=== PATIENT | male | born 1980 | race Caucasian/White ===

== ENCOUNTER → 2021-04-13 09:21 | Outpatient (CLI) | payer BC, SELFPAY ==
[2021-04-13 10:21] LABS: ALB/GLOB Ratio 0.9 RATIO (0.9-2.4); AST(SGOT) 18 U/L (15-37); Alanine Aminotransfer ALT/SGPT 37 U/L (16-61); Albumin, Serum 3.6 g/dL (3.2-5.0); Alkaline Phosphatase 87 U/L (45-117); Anion Gap 3 (5-15); BUN 8 mg/dL (7-18); Calcium,Total 8.9 mg/dL (8.5-10.1); Chloride 106 mmol/L (98-107); Cholesterol 211 mg/dL (200); EST Glomerular Filtration Rate 114 mL/min (>60); Est Glom Filt Rate - Afr Amer 137 mL/min (>60); Globulin 3.9 g/dL (2.2-4.2); Glucose 84 mg/dL (74-106); High Density Lipoprotein 42 mg/dL; Potassium 3.8 mmol/L (3.5-5.1); Protein, Total 7.5 g/dL (6.4-8.2); Sodium Level 138 mmol/L (136-145); Triglycerides 137 mg/dL; Very Low Density Lipoprotein 27 mg/dL (5-40)
== END ==
PROVIDERS: PCP Family Medicine; Referring Provider Family Medicine; Visit Provider Family Medicine
DX: E66.9 Obesity, unspecified (principal)
CPT/HCPCS: 36415; 80053; 80061

== ENCOUNTER → 2021-06-15 09:34 | Outpatient (CLI) | payer BC, SELFPAY ==
[2021-06-15 12:18] LABS: Absolute Lymphocyte Count 2.21 X10^3/uL (0.83-4.51); Absolute Neutrophil Count 5.2 X10^3/uL (2.0-7.7); Basophil# 0.04 X10^3/uL; Basophil% 0.5 % (0-1); Eosinophil# 0.11 X10^3/uL; Eosinophils% 1.4 % (0-5); Hematocrit 46.9 % (40-54); Hemoglobin 15.3 g/dL (13.0-16.5); Lymphocyte # 2.21 X10^3/ul (0.83-4.51); Lymphocyte % 27.5 % (19-41); Mean Corp Hgb Conc 32.6 g/dL (32-36); Mean Corpuscular Hgb 29.7 pg (27.0-32.0); Mean Corpuscular Volume 90.9 fL (80-94); Mean Platelet Vol. 10.6 fl (6.2-12.0); Monocyte# 0.46 X10^3/uL; Monocyte% 5.7 % (0-10); NRBC Flagged by Analyzer 0 % (0-5); Neutrophil # 5.18 X10^3/uL (2.7-7.7); Neutrophil % 64.3 % (47-70); Platelet Count 344 K/mm3 (150-450); RBC Distribution Width CV 12.6 % (11.6-14.6); Red Blood Count 5.16 M/mm3 (4.6-6.2); White Blood Count 8.1 K/mm3 (4.4-11.0)
[2021-06-15 12:45] LABS: AST(SGOT) 21 U/L (15-37); Alanine Aminotransfer ALT/SGPT 44 U/L (16-61); Albumin, Serum 3.9 g/dL (3.2-5.0); Alkaline Phosphatase 86 U/L (45-117); Anion Gap 10 (5-15); BUN 15 mg/dL (7-18); BUN/Creat Ratio 16.1 RATIO (10-20); Bilirubin, Direct 0.11 mg/dL (0.00-0.30); Calcium,Total 9.5 mg/dL (8.5-10.1); Chloride 105 mmol/L (98-107); Cholesterol 219 mg/dL (200); Creatinine, Serum 0.93 mg/dL (0.70-1.30); EST Glomerular Filtration Rate 95 mL/min (>60); Est Glom Filt Rate - Afr Amer 115 mL/min (>60); Globulin 4.1 g/dL (2.2-4.2); Glucose 82 mg/dL (74-106); High Density Lipoprotein 48 mg/dL; Potassium 3.8 mmol/L (3.5-5.1); Sodium Level 141 mmol/L (136-145); Triglycerides 131 mg/dL; Very Low Density Lipoprotein 26 mg/dL (5-40)
[2021-06-15 13:13] LABS: Hepatitis B Surface Antibody Non-Reactive; Hepatitis B Surface Antigen Non-Reactive (Nonreactive); Hepatitis C Antibody Non-Reactive (Nonreactive)
[2021-06-20 19:07] LABS: QNTFERON TB Mitogen Value > 10.00 IU/mL (.); QNTFERON TB Nil Value 0 IU/mL (.); QNTFERON TB1+ Ag Value 0 IU/mL (.); QNTFERON TB2+ Ag Value 0 IU/mL (.)
[2021-06-20 19:56] LABS: Hepatitis B Core Ab Total Negative (Negative); QNTIFERON TB Positive Criteria Negative (Negative)
== END ==
PROVIDERS: PCP Family Medicine; Visit Provider Physician Assistant Medical
DX: E78.5 Hyperlipidemia, unspecified (principal); L40.0 Psoriasis vulgaris; Z79.899 Other long term (current) drug therapy
CPT/HCPCS: 36415; 80048; 80061; 80076; 85025; 86480; 86704; 86706; 86803; 87340

== ENCOUNTER → 2022-06-17 | Outpatient (CLI) | payer BC, SELFPAY ==
[2022-06-19 21:07] LABS: QNTFERON TB Mitogen Value > 10.00 IU/mL (.); QNTFERON TB Nil Value 0.02 IU/mL (.); QNTFERON TB1+ Ag Value 0.02 IU/mL (.); QNTFERON TB2+ Ag Value 0.01 IU/mL (.)
[2022-06-20 15:29] LABS: Hepatitis B Core Ab Total Negative (Negative); QNTIFERON TB Positive Criteria Negative (Negative)
== END | disposition home or self-care (01) ==
LOC: MFPLAB 14:32
PROVIDERS: PCP Family Medicine; Visit Provider Physician Assistant Medical
DX: L40.0 Psoriasis vulgaris (principal); Z79.899 Other long term (current) drug therapy
CPT/HCPCS: 36415; 86480; 86704

== ENCOUNTER → 2022-09-27 | Outpatient (CLI) | payer BC, SELFPAY ==
[2022-09-27 18:14] LABS: Absolute Lymphocyte Count 2.77 X10^3/uL (0.83-4.51); Absolute Neutrophil Count 4.6 X10^3/uL (2.0-7.7); Basophil# 0.05 X10^3/uL; Basophil% 0.6 % (0-1); Eosinophil# 0.15 X10^3/uL; Eosinophils% 1.8 % (0-5); Hematocrit 43.1 % (40-54); Hemoglobin 14.2 g/dL (13.0-16.5); Lymphocyte # 2.77 X10^3/ul (0.83-4.51); Lymphocyte % 33.6 % (19-41); Mean Corp Hgb Conc 32.9 g/dL (32-36); Mean Corpuscular Hgb 30.7 pg (27.0-32.0); Mean Corpuscular Volume 93.1 fL (80-94); Mean Platelet Vol. 10.9 fl (6.2-12.0); Monocyte# 0.59 X10^3/uL; Monocyte% 7.2 % (0-10); NRBC Flagged by Analyzer 0 % (0-5); Neutrophil # 4.64 X10^3/uL (2.7-7.7); Neutrophil % 56.3 % (47-70); Platelet Count 287 K/mm3 (150-450); RBC Distribution Width CV 12.6 % (11.6-14.6); RBC Distribution Width SD 42.7 fl (35.1-43.9); Red Blood Count 4.63 M/mm3 (4.6-6.2); White Blood Count 8.2 K/mm3 (4.4-11.0)
[2022-09-27 18:43] LABS: ALB/GLOB Ratio 1.4 RATIO (0.9-2.4); AST(SGOT) 66 U/L (15-37); Alanine Aminotransfer ALT/SGPT 46 U/L (16-61); Albumin, Serum 4.2 g/dL (3.2-5.0); Alkaline Phosphatase 61 U/L (45-117); Anion Gap 9 (5-15); BUN 13 mg/dL (7-18); BUN/Creat Ratio 17.4 RATIO (10-20); Calcium,Total 9.5 mg/dL (8.5-10.1); Chloride 105 mmol/L (98-107); Cholesterol 197 mg/dL (200); Creatinine, Serum 0.75 mg/dL (0.70-1.30); EST Glomerular Filtration Rate 123 mL/min (>60); Est Glom Filt Rate - Afr Amer 148 mL/min (>60); Globulin 3.1 g/dL (2.2-4.2); Glucose 86 mg/dL (74-106); High Density Lipoprotein 55 mg/dL; Protein, Total 7.3 g/dL (6.4-8.2); Sodium Level 141 mmol/L (136-145); Thyroid Stim Hormone (TSH) 1.68 uIU/mL (0.358-3.74); Triglycerides 134 mg/dL; Very Low Density Lipoprotein 27 mg/dL (5-40)
[2022-09-27 18:50] LABS: Microalbumin,Random Urine 17.6 mg/L (NO RANGE EST.)
[2022-09-27 18:55] LABS: Hemoglobin A1c 5.2 % (3.8-5.6)
== END | disposition home or self-care (01) ==
LOC: MFPLAB 16:17
PROVIDERS: PCP Family Medicine; Visit Provider Family Medicine
DX: I10 Essential (primary) hypertension (principal)
CPT/HCPCS: 36415; 80053; 80061; 82043; 83036; 84443; 85025

== ENCOUNTER → 2023-04-13 | Outpatient (CLI) | payer BC, SELFPAY ==
--- NOTE | 2023-04-13 07:41 | MRI_ITS ---
INDICATION: cluster migraines L side only approx 1 yr EXAMINATION: MRI - MR Brain WO/W Contrast TECHNIQUE: MRI examination of brain obtained with standard protocol including multiplanar multiecho imaging. Pre and Postcontrast imaging obtained. IV Contrast Dosage and Agent: 20 mL Clariscan COMPARISON: : No relevant prior comparison study available FINDINGS: HEMISPHERES, CEREBELLUM AND BRAINSTEM: 1. The cerebral parenchyma, ventricular system, subarachnoid spaces have normal configuration and density. There is a normal gyral pattern. There is normal blair/white differentiation. No midline shift.. 2. The hemispheric white matter has normal appearance. 3. No intraparenchymal mass, hemorrhage, or acute territorial infarct. 4. The cerebellum, brainstem, basilar and suprasellar cisterns have normal appearance. No Chiari malformation. PITUITARY: There is a large homogeneously enhancing solid mass within the sella without sellar expansion, currently estimated at 2.0 x 1.6 cm in axial dimension, and 1.9 cm in superior to inferior dimension. There is suprasellar extension with contact with the optic nerves and optic chiasm with only minimal displacement.. No bony destruction. No evidence elida extension into the cavernous sinuses. Findings consistent with a pituitary macroadenoma. CSF SPACES: Appropriate for age. No hydrocephalus. Basal cisterns are patent. VESSELS: 1. There are normal flow voids noted in the great vessels at the skull base ORBITS AND PARANASAL SINUSES: 1. Both globes, extraocular muscles, optic nerves and retrobulbar fat appear unremarkable. 2. Paranasal sinuses are clear. BONY ELEMENTS: Bony elements of the cranial vault, facial skeleton and skull base have normal appearance. SCALP AND SOFT TISSUES: Normal appearance of the soft tissues of the scalp and the visualized face OTHER: None MRI/Brain W/WO Contrast IMPRESSION: 1. Prominent sellar mass with homogeneous enhancement and suprasellar extension with contact with the optic nerves and optic chiasm consistent with a pituitary macroadenoma estimated at 2.0 x 1.6 x 1.9 cm in size. No evidence of bony erosion, no evidence of extension into the cavernous sinus. 2. No evidence of intraparenchymal mass, hemorrhage, or acute territorial infarct. 3. No radiographically significant sinus disease. Electronically Signed: Kip Mendez MD at 23:42 EDT ,
[2023-04-16 12:55] LABS: CREATININE FINGERSTICK < 0.90 mg/dL (0.70-1.30); EGFR FINGERSTICK > 60 mL/min (>60)
== END | disposition home or self-care (01) ==
PROVIDERS: PCP Family Medicine
DX: G44.099 Other trigeminal autonomic cephalgias (TAC), not intractable (principal)
CPT/HCPCS: 70553; A9575

== ENCOUNTER → 2023-09-08 | Outpatient (CLI) | payer BC, SELFPAY ==
--- OUTSIDE RECORDS SUMMARY | 2023-09-08 16:25 | XMS RPT_ITS | CCD ---
Author Name Unknown Address [address] [place] [address] Organization [facility] Care Team Providers Care City Collector Name Role Phone Unavailable Primary Care Provider UnavailKETAN Harrison Attending Unavailable KETAN BEATTY Attending Unavailable KETAN BEATTY Attending Unavailable KETAN BEATTY Attending Unavailable TONEY CANCINO Referring Unavailable Medications Current Medications Medication Drug Class(es) Dates Sig (Normalized) Sig (Original) indomethacin 25 mg oral capsule (3 sources) Nonsteroidal Anti-inflammatory Drug Start: 02-08-2023 End: 03-10-2023 take 1 capsule by mouth three times daily at mealtime indomethacin (INDOCIN) 25 mg capsule Indications: Intractable chronic cluster headache Take 1 capsule by mouth three times daily with meals. 90 capsule 0 02/08/2023 03/10/2023 Active Completed/Discontinued Medications Medication Drug Class(es) Dates Sig (Normalized) Sig (Original) amitriptyline hydrochloride 10 mg oral tablet (9 sources) Tricyclic Antidepressant Start: 10-11-2022 amitriptyline (ELAVIL) 10 mg tablet 1.5 ml fremanezumab-vfrm 150 mg/ml auto-injector (2 sources) Start: 11-29-2022 End: 02-27-2023 inject 1.5 mL by subcutaneous injection every month fremanezumab-vfrm (AJOVY AUTOINJECTOR) 225 mg/1.5 mL auto-injector Inject 1.5 mL subcutaneously once every month. Do not shake. 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), not intractable] Onset: 01-03-2023 Episodic Results Test Name Value Interpretation Reference Range Facil ity Vital Signs Date Time Vital Sign Value Performing Clinician Isaiasi roniy 03-28-2023 10:03-0400 Body height 182.9 cm Ketan Beatty MD Work Phone: [facility] 03-28-2023 10:03-0400 Body weight 103.42 kg Ketan Beatty MD Work Phone: [facility] 03-28-2023 10:03-0400 Diastolic blood pressure 90 mm[Hg] Ketan Beatty MD Work Phone: [facility] 03-28-2023 10:03-0400 Heart rate 82 /min Ketan Beatty MD Work Phone: [facility] 03-28-2023 10:03-0400 Systolic blood pressure 141 mm[Hg] Ketan Beatty MD Work Phone: [facility] 02-14-2023 08:15-0400 Body height 182.9 cm Ketan Beatty MD Work Phone: [facility] 02-14-2023 08:15-0400 Body weight 103.42 kg Ketan Beatty MD Work Phone: [facility] 02-14-2023 08:15-0400 Diastolic blood pressure 86 mm[Hg] Ketan Beatty MD Work Phone: [facility] 02-14-2023 08:15-0400 Heart rate 75 /min Ketan Beatty MD Work Phone: [facility] 02-14-2023 08:15-0400 Systolic blood pressure 126 mm[Hg] Ketan Beatty MD Work Phone: [facility] 01-03-2023 08:22-0400 Body height 182.9 cm Ketan Beatty MD Work Phone: [facility] 01-03-2023 08:22-0400 Body weight 103.42 kg Ketan Beatty MD Work Phone: [facility] 01-03-2023 08:22-0400 Diastolic blood pressure 86 mm[Hg] Ketan Beatty MD Work Phone: [facility] 01-03-2023 08:22-0400 Heart rate 75 /min Ketan Beatty MD Work Phone: [facility] 01-03-2023 08:22-0400 Systolic blood pressure 128 mm[Hg] Ketan Beatty MD Work Phone: [facility] 11-03-2022 10:54-0500 Body height 182.9 cm Ketan Beatty MD Work Phone: [facility] 11-03-2022 10:54-0500 Body weight 102.06 kg Ketan Beatty MD Work Phone: [facility] 11-03-2022 10:54-0500 Diastolic blood pressure 87 mm[Hg] Ketan Beatty MD Work Phone: [facility] 11-03-2022 10:54-0500 Heart rate 90 /min Ketan Beatty MD Work Phone: [facility] 11-03-2022 10:54-0500 Systolic blood pressure 138 mm[Hg] Ketan Beatty MD Work Phone: [facility] Encounters Encounter Date Encounter Type Care Provider Facility Start: 03-29-2023 Telephone encounter Ketan bolton MD Work Phone: [facility] Neurology Plan of Treatment Date Care Activity Detail Author Start: 04-29-2023 Influenza vaccination [facility] Start: 08-29-2022 DEPRESSION ASSESSMENT DEPRESSION ASSESSMENT [facility] Start: 04-29-2022 Influenza vaccination INFLUENZA (#1) [facility] Start: 2016 LIPID SCREEN LIPID SCREEN [facility] Start: 2000 Urine microalbumin profile DTAP,TDAP,TD (1 - Tdap) [facility] Start: 1999 HEPATITIS C SCREENING HEPATITIS C SCREENING [facility] Start: 1999 HIV SCREENING HIV SCREENING [facility] Start: 03-01-1982 COVID-19 VACCINE (#1) COVID-19 VACCINE (#1) [facility] Start: 1981 HEPATITIS B (1 of 3 - 3-dose series) HEPATITIS B (1 of 3 - 3-dose series) [facility] End: 04-26-2024 Mri brain brain stem w/o w/contrast material MRI BRAIN WO/W IVCON Radiology Routine Trigeminal autonomic cephalgias 1 Occurrences starting 03/29/2023 until 04/26/2024 [facility] Work Phone: Payers Date Payer Category Payer Unknown [id number] 2020 Unknown [id number] Social History Date Type Detail Facility Start: 11-03-2022 Tobacco smoking stat [facility] Never smoked tobacco [facility] Start: 11-03-2022 Tobacco use and exposure Smoke less tobacco non-user [facility] Start: 11-03-2022 End: 03-28-2023 Alcohol intake Current drinker of alcohol (finding) [facility] Start: 11-03-2022 Alcohol Comment socially [facility] Start: 1981 Sex Assigned At Not on file [facility] Start: 01-03-2023 End: 02-14-2023 History of Social function [facility] Start: 01-03-2023 End: 02-14-2023 Tobacco use panel [facility] National Score (1-10 0), lower number is lower risk 47 [facility] Clinical Notes 11-03-2022 to 03-29-2023 Telephone Encounter - Luca Reyna - 03/29/2023 12:33 PM EDTTelephone Encounter - Swati Levin MA - 03/29/2023 8:31 AM EDTPatient Ketan Colorado MD - 03/28/2023 10:00 AM EDT Note Date & Type Note Facility 03-29-2023 Miscellaneous Notes Per Miss Iverson at [facility], NO auth required; Case # [id number] Luca Reyna Can you see if MRI BRAIN WO/W IVCON needs auth at [facility]? Address is [address] [address]. CPT: 67854 documented in this encounter [facility] 03-28-2023 Note HNO ID: [id number] Author: Ketan Beatty MD Service: ? Author Type: Physician Type: Progress Notes Filed: 03/29/2023 7:57 AM Note Text: Referring Provider: No ref. provider found Date: March 28, 2023 Chief Complaint: Headaches HISTORY OF PRESENT ILLNESS: Danish Farley is a 42 year old male who presents for Headaches. 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 He states that he has been staying busy with 14 new puppies. Patient denies smoking and only drinks socially. Patient completed prednisone taper 60 mg, taken daily for 10 days followed by 10 mg every 4 days with no medication side effects. He states that while on them they worked great but as soon as he got off of them the headaches returned. After completion of the steroids he will on average wake up 4 out of 7 nights with extreme headache. His pain is in the left gnosticism area and he can get rid of the intense pain within half an hour if he takes an over the counter medication. Patient denies the pain radiating from the left side of his head. He will have one to two intense headaches on a given day. He recently had a headache that two Maxalt did not even provide relief from. He states that he has some headache daily. There is some redness and tearing in the left eye. I, Lulu Engle MA , transcribing for Ketan Beatty MD. ALLERGIES No Known Allergies PAST MEDICAL HISTORY: PAST MEDICAL HISTORY Diagnosis Date Cholecystitis 07/28/2010 Cholelithiasis 07/28/2010 Hypertension PAST SURGICAL HISTORY Procedure Laterality Date LAPS SURG CHOLECYSTECTOMY W/CHOLANGIOGRAPHY 07/28/2010 FAMILY HISTORY Problem Relation Age of Onset Skin Cancer Mother other (hypercholesteroiema) Mother Depression Mother Obesity Mother Irritable Bowel Syndrome Mother Ischemic Heart Disease Father Diabetes Father Obesity Father Heart disease Father Cancer Father Stroke Father Obesity Brother Hypertension Brother Diabetes Brother Heart disease Maternal Grandfather Diabetes Paternal Grandmother Heart disease Paternal Grandfather Heart disease Maternal Uncle Diabetes Maternal Uncle Obesity Maternal Uncle SOCIAL HISTORY: Tobacco Use: Never Alcohol Use: Yes (socially) Drug Use: Not Currently Employer And Job Title: No employer specified ([employer]) Years Of Education Completed: Not specified Marital Status: Single MEDICATIONS: Current Outpatient Medications Medication Sig rizatriptan (MAXALT) 10 mg tablet Take 1 tablet by mouth as needed (at onset of headache. May repeat after 2 hours.). Do not exceed 30 mg per day. Directions for use are to take one at onset of migraine, and if not resolved, may take another in two hours. Do not exceed more than two in 24 hours, four in a week or nine in a month. TREMFYA 100 mg/mL lisinopril (ZESTRIL, PRINIVIL) 20 mg tablet Take 20 mg by mouth once daily. amitriptyline (ELAVIL) 10 mg tablet (Patient not taking: Reported on 01/03/2023) predniSONE (DELTASONE) 20 mg tablet TAKE 2 TABLETS BY MOUTH ONCE DAILY FOR 3 DAYS, THEN 1 TAB FOR 3 DAYS, THEN 1/2 (ONE-HALF) TAB FOR 3 DAYS (Patient not taking: Reported on 03/28/2023) No current facility-administered medications for this visit. I have personally reviewed the patients past medical history including social, family, surgical, diagnostics, and medications./AB REVIEW OF SYSTEMS: A full 10-system Review of Systems was completed and all was negative except for what is reflected in the History of Present Illness. Review of Systems Constitutional: Negative for chills, fever and unexpected weight change. HENT: Negative for congestion, facial swelling, trouble swallowing and voice change. Eyes: Negative for visual disturbance. Respiratory: Negative for shortness of breath. Cardiovascular: Negative for chest pain. Gastrointestinal: Negative for diarrhea, nausea and vomiting. Musculoskeletal: Negative for gait problem and myalgias. Allergic/Immunologic: Negative. Negative for immunocompromised state. Neurological: Positive for headaches. Negative for dizziness, syncope and light-headedness. Psychiatric/Behavioral: Negative. Negative for hallucinations and self-injury. Vitals: BP 141/90 Pulse 82 Ht 182.9 cm (6') Wt 103.4 kg (228 lb) BMI 30.92 kg/m? PHYSICAL EXAM:: The physical exam findings are as follows: General General Appearance - Well groomed. Orientation: Oriented to time, Oriented to place, and Oriented to person. Higher Cortical Function: Awake and alert. Language functions are intact. Patient names well and repeats well. Spontaneous speech as well as comprehension is normal. Fund of knowledge is intact for the patients' level of education. Attention span and concentration are normal and as expected for patients' age. Neurologic CRANIAL NER (more content not included)... 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 1.) Patient will start on Topamax 50 mg, 1 tablet twice daily. Side effects can include a change in taste especially noticed in soda pop and numbness in your finger. 2.) Discussed the terminal superintendent side effects of prednisone with patient and advised that he can not continue for an extended time. 3.) We will order an MRI brain w/w out contrast to be done at [facility]. 4.) Follow up after testing. documented in this encounter [facility] 03-28-2023 History of Presen t illness Narrative Referring Provider: No ref. provider found Date: March 28, 2023 Chief Complaint: Headaches HISTORY OF PRESENT ILLNESS: Danish Farley is a 42 year old male who presents for Headaches. 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 He states that he has been staying busy with 14 new puppies. Patient denies smoking and only drinks socially. Patient completed prednisone taper 60 mg, taken daily for 10 days followed by 10 mg every 4 days with no medication side effects. He states that while on them they worked great but as soon as he got off of them the headaches returned. After completion of the steroids he will on average wake up 4 out of 7 nights with extreme headache. His pain is in the left gnosticism area and he can get rid of the intense pain within half an hour if he takes an over the counter medication. Patient denies the pain radiating from the left side of his head. He will have one to two intense headaches on a given day. He recently had a headache that two Maxalt did not even provide relief from. He states that he has some headache daily. There is some redness and tearing in the left eye. I, Lulu Engle MA , transcribing for Ketan Beatty MD. ALLERGIES No Known Allergies PAST MEDICAL HISTORY: PAST MEDICAL HISTORY Diagnosis Date Cholecystitis 07/28/2010 Cholelithiasis 07/28/2010 Hypertension PAST SURGICAL HISTORY Procedure Laterality Date LAPS SURG CHOLECYSTECTOMY W/CHOLANGIOGRAPHY 07/28/2010 FAMILY HISTORY Problem Relation Age of Onset Skin Cancer Mother other (hypercholesteroiema) Mother Depression Mother Obesity Mother Irritable Bowel Syndrome Mother Ischemic Heart Disease Father Diabetes Father Obesity Father Heart disease Father Cancer Father Stroke Father Obesity Brother Hypertension Brother Diabetes Brother Heart disease Maternal Grandfather Diabetes Paternal Grandmother Heart disease Paternal Grandfather Heart disease Maternal Uncle Diabetes Maternal Uncle Obesity Maternal Uncle SOCIAL HISTORY: Tobacco Use: Never Alcohol Use: Yes (socially) Drug Use: Not Currently Employer And Job Title: No employer specified ([employer]) Years Of Education Completed: Not specified Marital Status: Single MEDICATIONS: Current Outpatient Medications Medication Sig rizatriptan (MAXALT) 10 mg tablet Take 1 tablet by mouth as needed (at onset of headache. May repeat after 2 hours.). Do not exceed 30 mg per day. Directions for use are to take one at onset of migraine, and if not resolved, may take another in two hours. Do not exceed more than two in 24 hours, four in a week or nine in a month. TREMFYA 100 mg/mL lisinopril (ZESTRIL, PRINIVIL) 20 mg tablet Take 20 mg by mouth once daily. amitriptyline (ELAVIL) 10 mg tablet (Patient not taking: Reported on 01/03/2023) predniSONE (DELTASONE) 20 mg tablet TAKE 2 TABLETS BY MOUTH ONCE DAILY FOR 3 DAYS, THEN 1 TAB FOR 3 DAYS, THEN 1/2 (ONE-HALF) TAB FOR 3 DAYS (Patient not taking: Reported on 03/28/2023) No current facility-administered medications for this visit. I have personally reviewed the patients past medical history including social, family, surgical, diagnostics, and medications./AB REVIEW OF SYSTEMS: A full 10-system Review of Systems was completed and all was negative except for what is reflected in the History of Present Illness. Review of Systems Constitutional: Negative for chills, fever and unexpected weight change. HENT: Negative for congestion, facial swelling, trouble swallowing and voice change. Eyes: Negative for visual disturbance. Respiratory: Negative for shortness of breath. Cardiovascular: Negative for chest pain. Gastrointestinal: Negative for diarrhea, nausea and vomiting. Musculoskeletal: Negative for gait problem and myalgias. Allergic/Immunologic: Negative. Negative for immunocompromised state. Neurological: Positive for headaches. Negative for dizziness, syncope and light-headedness. Psychiatric/Behavioral: Negative. Negative for hallucinations and self-injury. Vitals: BP 141/90 Pulse 82 Ht 182.9 cm (6') Wt 103.4 kg (228 lb) BMI 30.92 kg/m PHYSICAL EXAM:: The physical exam findings are as follows: General General Appearance - Well groomed. Orientation: Oriented to time, Oriented to place, and Oriented to person. Higher Cortical Function: Awake and alert. Language functions are intact. Patient names well and repeats well. Spontaneous speech as well as comprehension is normal. Fund of knowledge is intact for the patients' level of education. Attention span and concentration are normal and as expected for patients' age. Neurologic CRANIAL NERVES: ll - Makes and sustains eye contact. Visual rapp are full to confrontation testing. lll, lV, Vl - Pupils are 2 -3 mm in size and reactive. External ocular movements are full, and there is no nystagmus. V - Facial sensation to light touch and pin prick, normal. Vll - No facial asymmetry. Vlll - Normal hearing. lX - Palatal movements, normal. Xl - Good and equal shoulder shrugs. Xll - Tongue protrusion, midline. Motor Exam Bulk/Size: Normal Strength Exam: Upper Extremity Right Left Deltoid 5 5 Biceps 5 5 Triceps 5 5 Wrist Extensor 5 5 Wrist Flexor 5 5 APB 5 5 FDI 5 5 Lower Extremity Right Left Flexor hip joint 5 5 Extensor hip joint 5 5 Extensor knee joint 5 5 Flexor knee joint 5 5 Dorsi flexor ankle joint 5 5 Plantar flexor ankle joint 5 5 Tone: Normal Abnormal movements: None Sensory: Right Left Light Touch Not checked Not checked Pin Prick Not checked Not checked Vibration Not checked Not checked Temperature Not checked Not checked Distal/Proximal exam: Normal Sensory level: None Reflex Right Left Biceps 2+ 2+ Triceps 2+ 2+ Wrist 2+ 2+ Knee 2+ 2+ Ankle 2+ 2+ Plantar Not checked Not checked Cerebellar Exam: Normal Gait and Stance: Not checked Tandem walk: Not checked Romberg's: Not checked The following documents and testing were reviewed and discussed with the patient. 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 1.) Patient will start on Topamax 50 mg, 1 tablet twice daily. Side effects can include a change in taste especially noticed in soda pop and numbness in your finger. 2.) Discussed the assisted side effects of prednisone with patient and advised that he can not continue for an extended time. 3.) We will order an MRI brain w/w out contrast to be done at [facility]. 4.) Follow up after testing. The old record was reviewed and new history from past medical record was obtained and recorded. I have discussed the recommended treatment, alternative treatments and other treatment options in detail. I have discussed the risks, benefits and side effects of the recommended treatment in detail as well. I have attempted to answer all their questions to their satisfaction, and understanding of the explanation has been voiced. With approval we will pursue the recommended treatment. I, Ketan Beatty, have reviewed and agree with the information in the medical record transcribed by Lulu Engle MA . Ketan Beatty MD documented in this encounter [facility] 03-16-2023 Miscellaneous Notes Patient left message stating that he completed the Prednisone and his headaches are coming back. He is wondering if is appointment needs moved up or if there is another medication that he should try? Patient states he also needs a refill on his Maxalt. documented in this encounter [facility] 02-14-2023 Note HNO ID: [id number] Author: Ketan Beatty MD Service: ? Author Type: Physician Type: Progress Notes Filed: 02/14/2023 1:50 PM Note Text: Referring Provider: No ref. provider found Date: February 14, 2023 Chief Complaint: Headaches HISTORY OF PRESENT ILLNESS: Danish Farley is a 42 year old male who follows for Headaches. 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 He states that he has been staying busy with 14 new puppies. Patient denies smoking and only drinks socially. Patient is taking Indomethacin 25 mg, 3 tablets daily with no medication side effects; however he states that he is still having headaches. He states every morning he will have a headache at his left gnosticism, behind his eye and back into his head. He is able to get relief from aspirin within a hour but he does randomly get them back at some point during the day. Patient states that on 02/12/2023 he woke up with a severe headache with his eye watering. He did take Maxalt on this day to try to get relief but states that he had it until about noon. I, Lulu Engle MA, transcribing for Ketan Beatty MD. ALLERGIES No Known Allergies PAST MEDICAL HISTORY: PAST MEDICAL HISTORY Diagnosis Date Cholecystitis 07/28/2010 Cholelithiasis 07/28/2010 Hypertension PAST SURGICAL HISTORY Procedure Laterality Date LAPS SURG CHOLECYSTECTOMY W/CHOLANGIOGRAPHY 07/28/2010 FAMILY HISTORY Problem Relation Age of Onset Skin Cancer Mother other (hypercholesteroiema) Mother Depression Mother Obesity Mother Irritable Bowel Syndrome Mother Ischemic Heart Disease Father Diabetes Father Obesity Father Heart disease Father Cancer Father Stroke Father Obesity Brother Hypertension Brother Diabetes Brother Heart disease Maternal Grandfather Diabetes Paternal Grandmother Heart disease Paternal Grandfather Heart disease Maternal Uncle Diabetes Maternal Uncle Obesity Maternal Uncle SOCIAL HISTORY: Tobacco Use: Never Alcohol Use: Yes (socially) Drug Use: Not Currently Employer And Job Title: No employer specified ([employer]) Years Of Education Completed: Not specified Marital Status: Single MEDICATIONS: Current Outpatient Medications Medication Sig indomethacin (INDOCIN) 25 mg capsule Take 1 capsule by mouth three times daily with meals. rizatriptan (MAXALT) 10 mg tablet Take 1 tablet by mouth as needed (at onset of headache. May repeat after 2 hours.). Do not exceed 30 mg per day. Directions for use are to take one at onset of migraine, and if not resolved, may take another in two hours. Do not exceed more than two in 24 hours, four in a week or nine in a month. amitriptyline (ELAVIL) 10 mg tablet (Patient not taking: Reported on 01/03/2023) TREMFYA 100 mg/mL lisinopril (ZESTRIL, PRINIVIL) 20 mg tablet Take 20 mg by mouth once daily. (Patient not taking: Reported on 01/03/2023) predniSONE (DELTASONE) 20 mg tablet TAKE 2 TABLETS BY MOUTH ONCE DAILY FOR 3 DAYS, THEN 1 TAB FOR 3 DAYS, THEN 1/2 (ONE-HALF) TAB FOR 3 DAYS No current facility-administered medications for this visit. I have personally reviewed the patients past medical history including social, family, surgical, diagnostics, and medications./AB Review of Systems Neurological: Positive for headaches. Vitals: BP 126/86 Pulse 75 Ht 182.9 cm (6') Wt 103.4 kg (228 lb) BMI 30.92 kg/m? PHYSICAL EXAM:: The physical exam findings are as follows: General General Appearance - Well groomed Orientation: Oriented to time, oriented to place, and oriented to person. Higher Cortical Function: Awake and alert. Language functions are intact. Patient names well and repeats well, spontaneous speech as well as comprehension is normal and fund of knowledge is intact for the patient level of education. Attention span and concentration are normal and as expected for patient's age. Neurologic CRANIAL NERVES: ll - Makes and sustains eye contact. Visual rapp are full to confrontation testing. lll, lV, Vl - Pupils are 2 -3 mm in size and reactive. External ocular movements are full and there is no nystagmus. V - Facial sensation to light touch and pin prick, normal. Vll - No facial asymmetry Vlll - Normal hearing. lX - Palatal movements, normal. Xl - Good and equal shoulder shrugs. Xll - Tongue protrusion, midline. Motor Exam Bulk/Size: Normal Strength Exam: Upper Extremity Right Left Deltoid 5 5 Biceps 5 5 Triceps 5 5 Wrist Extensor 5 5 Wrist Flexor 5 5 APB 5 5 FDI 5 5 Lower Extremity Right Left Flexor hip joint 5 5 Extensor hip joint 5 5 Extensor knee joint 5 5 Flexor knee joint 5 5 Dorsi flexor ankle joint 5 5 Plantar flexor ankle joint 5 5 Tone: Normal Abnormal movements: None Sensory: Right Left Light Touch Normal Normal Pin Prick Not checke (more content not included)... 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 1.) Patient will start on Prednisone 60 mg, take daily for 10 days. After 10 days you will taper down by 10 mg every 4 days. 2.) No further testing is indicated at this time. 3.) Follow up in 6 weeks. documented in this encounter [facility] 02-14-2023 History of Presen t illness Narrative Referring Provider: No ref. provider found Date: February 14, 2023 Chief Complaint: Headaches HISTORY OF PRESENT ILLNESS: Danish Farley is a 42 year old male who follows for Headaches. 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 He states that he has been staying busy with 14 new puppies. Patient denies smoking and only drinks socially. Patient is taking Indomethacin 25 mg, 3 tablets daily with no medication side effects; however he states that he is still having headaches. He states every morning he will have a headache at his left gnosticism, behind his eye and back into his head. He is able to get relief from aspirin within a hour but he does randomly get them back at some point during the day. Patient states that on 02/12/2023 he woke up with a severe headache with his eye watering. He did take Maxalt on this day to try to get relief but states that he had it until about noon. I, Lulu Engle MA, transcribing for Ketan Beatty MD. ALLERGIES No Known Allergies PAST MEDICAL HISTORY: PAST MEDICAL HISTORY Diagnosis Date Cholecystitis 07/28/2010 Cholelithiasis 07/28/2010 Hypertension PAST SURGICAL HISTORY Procedure Laterality Date LAPS SURG CHOLECYSTECTOMY W/CHOLANGIOGRAPHY 07/28/2010 FAMILY HISTORY Problem Relation Age of Onset Skin Cancer Mother other (hypercholesteroiema) Mother Depression Mother Obesity Mother Irritable Bowel Syndrome Mother Ischemic Heart Disease Father Diabetes Father Obesity Father Heart disease Father Cancer Father Stroke Father Obesity Brother Hypertension Brother Diabetes Brother Heart disease Maternal Grandfather Diabetes Paternal Grandmother Heart disease Paternal Grandfather Heart disease Maternal Uncle Diabetes Maternal Uncle Obesity Maternal Uncle SOCIAL HISTORY: Tobacco Use: Never Alcohol Use: Yes (socially) Drug Use: Not Currently Employer And Job Title: No employer specified ([employer]) Years Of Education Completed: Not specified Marital Status: Single MEDICATIONS: Current Outpatient Medications Medication Sig indomethacin (INDOCIN) 25 mg capsule Take 1 capsule by mouth three times daily with meals. rizatriptan (MAXALT) 10 mg tablet Take 1 tablet by mouth as needed (at onset of headache. May repeat after 2 hours.). Do not exceed 30 mg per day. Directions for use are to take one at onset of migraine, and if not resolved, may take another in two hours. Do not exceed more than two in 24 hours, four in a week or nine in a month. amitriptyline (ELAVIL) 10 mg tablet (Patient not taking: Reported on 01/03/2023) TREMFYA 100 mg/mL lisinopril (ZESTRIL, PRINIVIL) 20 mg tablet Take 20 mg by mouth once daily. (Patient not taking: Reported on 01/03/2023) predniSONE (DELTASONE) 20 mg tablet TAKE 2 TABLETS BY MOUTH ONCE DAILY FOR 3 DAYS, THEN 1 TAB FOR 3 DAYS, THEN 1/2 (ONE-HALF) TAB FOR 3 DAYS No current facility-administered medications for this visit. I have personally reviewed the patients past medical history including social, family, surgical, diagnostics, and medications./AB Review of Systems Neurological: Positive for headaches. Vitals: BP 126/86 Pulse 75 Ht 182.9 cm (6') Wt 103.4 kg (228 lb) BMI 30.92 kg/m PHYSICAL EXAM:: The physical exam findings are as follows: General General Appearance - Well groomed Orientation: Oriented to time, oriented to place, and oriented to person. Higher Cortical Function: Awake and alert. Language functions are intact. Patient names well and repeats well, spontaneous speech as well as comprehension is normal and fund of knowledge is intact for the patient level of education. Attention span and concentration are normal and as expected for patient's age. Neurologic CRANIAL NERVES: ll - Makes and sustains eye contact. Visual rapp are full to confrontation testing. lll, lV, Vl - Pupils are 2 -3 mm in size and reactive. External ocular movements are full and there is no nystagmus. V - Facial sensation to light touch and pin prick, normal. Vll - No facial asymmetry Vlll - Normal hearing. lX - Palatal movements, normal. Xl - Good and equal shoulder shrugs. Xll - Tongue protrusion, midline. Motor Exam Bulk/Size: Normal Strength Exam: Upper Extremity Right Left Deltoid 5 5 Biceps 5 5 Triceps 5 5 Wrist Extensor 5 5 Wrist Flexor 5 5 APB 5 5 FDI 5 5 Lower Extremity Right Left Flexor hip joint 5 5 Extensor hip joint 5 5 Extensor knee joint 5 5 Flexor knee joint 5 5 Dorsi flexor ankle joint 5 5 Plantar flexor ankle joint 5 5 Tone: Normal Abnormal movements: None Sensory: Right Left Light Touch Normal Normal Pin Prick Not checked Not checked Vibration Not checked Not checked Temperature Not checked Not checked Distal/Proximal exam normal Sensory level: None Reflex Right Left Biceps 1+ 1+ Triceps 1+ 1+ Wrist 1+ 1+ Knee 1+ 1+ Ankle 1+ 1+ Plantar Not checked Not checked Cerebellar Exam: Normal Gait and Stance: Not checked Tandem walk: Not checked Romberg's: Not checked ASSESSMENT/PLAN: 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 1.) Patient will discontinue Indomethacin and start on Prednisone 60 mg, take daily for 10 days. After 10 days you will taper down by 10 mg every 4 days. 2.) No further testing is indicated at this time. 3.) Follow up in 6 weeks. The old record was reviewed and new history from past medial history was obtained and recorded. I have discussed the recommended treatment, alternative treatments and other treatment options in detail. I have discussed the risks, benefits and side effect of the recommended treatment in detail as well. I have attempted to answer all their questions to their satisfaction and understanding of the explanation has been voiced. With approval we will pursue the recommended treatment. I, Ketan Beatty, have reviewed and agree with the information in the medical record transcribed by Lulu Engle MA. Ketan Beatty MD documented in this encounter [facility] 01-03-2023 Miscellaneous Notes Notified patient that we changed his dosage to 25 mg up to three times daily for 10 days. Lulu Engle MA documented in this encounter [facility] documented as of this encounter (statuses as of 02/14/2023) [facility]05-08-2023 History of Past illness Narrative* Problem Noted Date Diagnosed Date Resolved Date Short lasting unilateral veronica ralgiform headache with conjunctival injection and tearing 01/03/2023 02/14/2023 documented as of this encounter (statuses as of 03/16/2023) [facility]05-08-2023 NoteHNO ID: [id number] Author: Ketan Beatty MD Service: ? Author Type: Physician Type: Progress Notes Filed: 01/03/2023 2:59 PM Note Text: Referring Provider: No ref. provider found Date: January 03, 2023 Chief Complaint: Headaches HISTORY OF PRESENT ILLNESS: Danish Farley is a 42 year old male who follows for Headaches. 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 Patient denies smoking and only drinks socially. Patient started on Ajovy injection and just took his second injection on 12/31/2022 with no medication side effects; however, he states that to this point he has not seen results he had hoped for. He feels that it may have reduced the severity of the pain but definitely has not eliminated them. He states that his headaches started in July 2022 and he had the last one on Monday, January 02, 2023. They have increased to the point he will have some extent of a headache every day. The pain is behind his left ear and goes up into his gnosticism. It can be a constant pain or at other times he will get sharp jolts of paint that can happen up to 100 times a day. He is extremely light sensitive and since his last office visit he has noticed that he gets a runny nose and watering of his eyes when he has a severe headache. He is taking Maxalt as needed and does benefit from use. I, Lulu Engle MA , transcribing for Ketan Beatty MD. ALLERGIES No Known Allergies PAST MEDICAL HISTORY: PAST MEDICAL HISTORY Diagnosis Date Cholecystitis 07/28/2010 Cholelithiasis 07/28/2010 Hypertension PAST SURGICAL HISTORY Procedure Laterality Date LAPS SURG CHOLECYSTECTOMY W/CHOLANGIOGRAPHY 07/28/2010 FAMILY HISTORY Problem Relation Age of Onset Skin Cancer Mother other (hypercholesteroiema) Mother Depression Mother Obesity Mother Irritable Bowel Syndrome Mother Ischemic Heart Disease Father Diabetes Father Obesity Father Heart disease Father Cancer Father Stroke Father Obesity Brother Hypertension Brother Diabetes Brother Heart disease Maternal Grandfather Diabetes Paternal Grandmother Heart disease Paternal Grandfather Heart disease Maternal Uncle Diabetes Maternal Uncle Obesity Maternal Uncle SOCIAL HISTORY: Tobacco Use: Never Alcohol Use: Yes (socially) Drug Use: Not Currently Employer And Job Title: No employer specified ([employer]) Years Of Education Completed: Not specified Marital Status: Single MEDICATIONS: Current Outpatient Medications Medication Sig rizatriptan (MAXALT) 10 mg tablet Take 1 tablet by mouth as needed (at onset of headache. May repeat after 2 hours.). Do not exceed 30 mg per day. Directions for use are to take one at onset of migraine, and if not resolved, may take another in two hours. Do not exceed more than two in 24 hours, four in a week or nine in a month. TREMFYA 100 mg/mL amitriptyline (ELAVIL) 10 mg tablet (Patient not taking: Reported on 01/03/2023) lisinopril (ZESTRIL, PRINIVIL) 20 mg tablet Take 20 mg by mouth once daily. (Patient not taking: Reported on 01/03/2023) predniSONE (DELTASONE) 20 mg tablet TAKE 2 TABLETS BY MOUTH ONCE DAILY FOR 3 DAYS, THEN 1 TAB FOR 3 DAYS, THEN 1/2 (ONE-HALF) TAB FOR 3 DAYS No current facility-administered medications for this visit. I have personally reviewed the patients past medical history including social, family, surgical, diagnostics, and medications./AB Review of Systems Constitutional: Negative for chills, fever and unexpected weight change. HENT: Negative for congestion, facial swelling, trouble swallowing and voice change. Eyes: Negative for visual disturbance. Respiratory: Negative for shortness of breath. Cardiovascular: Negative for chest pain. Gastrointestinal: Negative for diarrhea, nausea and vomiting. Musculoskeletal: Negative for gait problem and myalgias. Allergic/Immunologic: Negative. Negative for immunocompromised state. Neurological: Positive for headaches. Negative for dizziness, syncope and light-headedness. Psychiatric/Behavioral: Negative. Negative for hallucinations and self-injury. Vitals: BP 128/86 Pulse 75 Ht 182.9 cm (6') Wt 103.4 kg (228 lb) BMI 30.92 kg/m? PHYSICAL EXAM:: The physical exam findings are as follows: General General Appearance - Well groomed Orientation: Oriented to time, oriented to place, and oriented to person. Higher Cortical Function: Awake and alert. Language functions are intact. Patient names well and repeats well, spontaneous speech as well as comprehension is normal and fund of knowledge is intact for the patient level of education. Attention span and concentration are normal and as expected for patient's age. Neurologic CRANIAL NERVES: ll - Makes and sustains eye contact. Visual rapp are full to confrontation testing. lll, lV, Vl - Pupils are 2 (more content not included)...[facility]05-08-2023 Instructions* Patient Instructions* Lulu Engle MA - 01/03/2023 8:47 AM EDT ASSESSMENT/PLAN: Intractable chronic cluster headache - ICD9: 339.02, ICD10: G44.021 Patient has tried and failed on Verapamil, Prednisone, Amitriptyline and Ajovy. 1.) Patient will start on Indomethacin 25 mg 1 tablet daily for 3 days then 2 tablets daily for three days then 3 tablets daily. You will take this for 10 days total to see if you react to this medication and if you do you will then continue on the minimum dosage. 2.) Make sure to take this with food as it is known to cause stomach troubles. Please discontinue and call the office if you have any trouble taking it. 3.) Follow up in 4 weeks [facility] History of Present illness Narrative* Ketan Beatty MD - 01/03/2023 8:30 AM EDT Referring Provider: No ref. provider found Date: January 03, 2023 Chief Complaint: Headaches HISTORY OF PRESENT ILLNESS: Danish Farley is a 42 year old male who follows for Headaches. 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 Patient denies smoking and only drinks socially. Patient started on Ajovy injection and just took his second injection on 12/31/2022 with no medication side effects; however, he states that to this point he has not seen results he had hoped for. He feels that it may have reduced the severity of the pain but definitely has not eliminated them. He states that his headaches started in July 2022 and he had the last one on Monday, January 02, 2023. They have increased to the point he will have some extent of a headache every day. The pain is behind his left ear and goes up into his gnosticism. It can be a constant pain or at other times he will get sharp jolts of paint that can happen up to 100 times a day. He is extremely light sensitive and since his last office visit he has noticed that he gets a runny nose and watering of his eyes when he has asevere headache. He is taking Maxalt as needed and does benefit from use. I, Lulu Engle MA , transcribing for Ketan Beatty MD. ALLERGIES No Known Allergies PAST MEDICAL HISTORY: PAST MEDICAL HISTORY Diagnosis Date Cholecystitis 07/28/2010 Cholelithiasis 07/28/2010 Hypertension PAST SURGICAL HISTORY Procedure Laterality Date LAPS SURG CHOLECYSTECTOMY W/CHOLANGIOGRAPHY 07/28/2010 FAMILY HISTORY Problem Relation Age of Onset Skin Cancer Mother other (hypercholesteroiema) Mother Depression Mother Obesity Mother Irritable Bowel Syndrome Mother Ischemic Heart Disease Father Diabetes Father Obesity Father Heart disease Father Cancer Father Stroke Father Obesity Brother Hypertension Brother Diabetes Brother Heart disease Maternal Grandfather Diabetes Paternal Grandmother Heart disease Paternal Grandfather Heart disease Maternal Uncle Diabetes Maternal Uncle Obesity Maternal Uncle SOCIAL HISTORY: Tobacco Use: Never Alcohol Use: Yes (socially) Drug Use: Not Currently Employer And Job Title: No employer specified ([employer]) Years Of Education Completed: Not specified Marital Status: Single MEDICATIONS: Current Outpatient Medications Medication Sig rizatriptan (MAXALT) 10 mg tablet Take 1 tablet by mouth as needed (at onset of headache. May repeat after 2 hours.). Do not exceed 30 mg per day. Directions for use are to take one at onset of migraine, and if not resolved, may take another in two hours. Do not exceed more than two in 24 hours, four in a week or nine in a month. TREMFYA 100 mg/mL amitriptyline (ELAVIL) 10 mg tablet (Patient not taking: Reported on 01/03/2023) lisinopril (ZESTRIL, PRINIVIL) 20 mg tablet Take 20 mg by mouth once daily. (Patient not taking: Reported on 01/03/2023) predniSONE (DELTASONE) 20 mg tablet TAKE 2 TABLETS BY MOUTH ONCE DAILY FOR 3 DAYS, THEN 1 TAB FOR 3DAYS, THEN 1/2 (ONE-HALF) TAB FOR 3 DAYS No current facility-administered medications for this visit. I have personally reviewed the patients past medical history including social, family, surgical, diagnostics, and medications./AB Review of Systems Constitutional: Negative for chills, fever and unexpected weight change. HENT: Negative for congestion, facial swelling, trouble swallowing and voice change. Eyes: Negative for visual disturbance. Respiratory: Negative for shortness of breath. Cardiovascular: Negative for chest pain. Gastrointestinal: Negative for diarrhea, nausea and vomiting. Musculoskeletal: Negative for gait problem and myalgias. Allergic/Immunologic: Negative. Negative for immunocompromised state. Neurological: Positive for headaches. Negative for dizziness, syncope and light-headedness. Psychiatric/Behavioral: Negative. Negative for hallucinations and self-injury. Vitals: BP 128/86 Pulse 75 Ht 182.9 cm (6') Wt 103.4 kg (228 lb) BMI 30.92 kg/m PHYSICAL EXAM:: The physical exam findings are as follows: General General Appearance - Well groomed Orientation: Oriented to time, oriented to place, and oriented to person. Higher Cortical Function: Awake and alert. Language functions are intact. Patient names well and repeats well, spontaneous speech as well as comprehension is normal and fund of knowledge is intact for the patient level of education. Attention span and concentration are normal and as expected for patient's age. Neurologic CRANIAL NERVES: ll - Makes and sustains eye contact. Visual rapp are full to confrontation testing. lll, lV, Vl - Pupils are 2 -3 mm in size and reactive. External ocular movements are full and thereis no nystagmus. V - Facial sensation to light touch and pin prick, normal. Vll - No facial asymmetry Vlll - Normal hearing. lX - Palatal movements, normal. Xl - Good and equal shoulder shrugs. Xll - Tongue protrusion, midline. Motor Exam Bulk/Size: Normal Strength Exam: Upper Extremity Right Left Deltoid 5 5 Biceps 5 5 Triceps 5 5 Wrist Extensor 5 5 Wrist Flexor 5 5 APB 5 5 FDI 5 5 Lower Extremity Right Left Flexor hip joint 5 5 Extensor hip joint 5 5 Extensor knee joint 5 5 Flexor knee joint 5 5 Dorsi flexor ankle joint 5 5 Plantar flexor ankle joint 5 5 Tone: Normal Abnormal movements: None Sensory: Right Left Light Touch Normal Normal Pin Prick Not checked Not checked Vibration Not checked Not checked Temperature Not checked Not checked Distal/Proximal exam normal Sensory level: None Reflex Right Left Biceps 2+ 2+ Triceps 2+ 2+ Wrist 2+ 2+ Knee 2+ 2+ Ankle 2+ 2+ Plantar Not checked Not checked Cerebellar Exam: Normal Gait and Stance: Not checked Tandem walk: Not checked Romberg's: Not checked ASSESSMENT/PLAN: Intractable chronic cluster headache - ICD9: 339.02, ICD10: G44.021 Patient has tried and failed on Verapamil, Prednisone, Amitriptyline and Ajovy. 1.) Patient will start on Indomethacin 25 mg 1 tablet daily for 3 days then 2 tablets daily for three days then 3 tablets daily. You will take this for 10 days total to see if you react to this medication and if you do you will then continue on the minimum dosage. 2.) Make sure to take this with food as it is known to cause stomach troubles. Please discontinue and call the office if you have any trouble taking it. 3.) Follow up in 4 weeks The old record was reviewed and new history from past medical history was obtained and recorded. I have discussed the recommended treatment, alternative treatments and other treatment options in detail. I have discussed the risks, benefits and side effect of the recommended treatment in detail as well. I have attempted to answer all their questions to their satisfaction and understanding of the explanation has been voiced. With approval we will pursue the recommended treatment. I, Ketan Beatty, have reviewed and agree with the information in the medical record transcribed by, Lulu Engle MA. Ketan Beatty MD [facility] Miscellaneous Notes* Telephone Encounter - Lulu Engle MA - 12/01/2022 9:00 AM EDT Patient notified that it has been approved. Lulu Engle MA * Telephone Encounter - Luca Reyna - 12/01/2022 7:36 AM EDT Approved; Auth # [id number] 11/01/2022-12/01/2023 Luca Reyna * Telephone Encounter - Aniyah Ortega - 11/29/2022 3:44 PM EDT Pt is notified * Telephone Encounter - Lulu Engle MA - 11/29/2022 1:44 PM EDT The patient's insurance requires prior auth for the Ajovy injections. Can we please get this started as the order is being processed. Lulu Mckeon [facility] Miscellaneous Notes* Telephone Encounter - Lulu Engle MA - 11/23/2022 9:31 AM EDT Patient called in to let us know that he has been trying the plan of care we gave him but that he is not getting any relief with this and wanted to know if there is something else we can try. Lulu Engle MA [facility] NoteHNO ID: [id number] Author: Ketan Beatty MD Service: ? Author Type: Physician Type: Progress Notes Filed: 11/04/2022 9:10 AM Note Text: Referring Provider: Toney Cancino, Date: November 03, 2022 Chief Complaint: Headaches HISTORY OF PRESENT ILLNESS: Danish Farley is a 42 year old male who presents for Headaches. 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 Patient denies smoking and only drinks socially. Patient states that about three to four months ago he started to get headaches that caused his left eye to water and him to become sensitive to light. He didn't think much of it at first but then they began to occur daily. He started on Lisinopril in an effort to help reduce his blood pressure in hopes that it would help the headaches also. He states that the headaches will start with a pressure sensation in his head behind his left eye about half way around his head. He denies redness in his eye or his nose becoming runny when his eye vazquez. If he takes an over the counter medication in time he can get relief fairly quick. Patient believes that moving around is better than sitting or laying down for him during a headache. He states that he feels like the headaches are constant. Patient had recently moved so he did try a new pillow and not wearing his contacts for a week with no benefits. Patient states that his brother also has headaches similar to his are. He did recently start on a regiment of Prednisone and benefited from use. I, Lulu Engle MA, transcribing for Ketan Beatty MD. ALLERGIES No Known Allergies PAST MEDICAL HISTORY: PAST MEDICAL HISTORY Diagnosis Date Cholecystitis 07/28/2010 Cholelithiasis 07/28/2010 Hypertension PAST SURGICAL HISTORY Procedure Laterality Date LAPS SURG CHOLECYSTECTOMY W/CHOLANGIOGRAPHY 07/28/2010 FAMILY HISTORY Problem Relation Age of Onset Skin Cancer Mother other (hypercholesteroiema) Mother Depression Mother Obesity Mother Irritable Bowel Syndrome Mother Ischemic Heart Disease Father Diabetes Father Obesity Father Heart disease Father Cancer Father Stroke Father Obesity Brother Hypertension Brother Diabetes Brother Heart disease Maternal Grandfather Diabetes Paternal Grandmother Heart disease Paternal Grandfather Heart disease Maternal Uncle Diabetes Maternal Uncle Obesity Maternal Uncle SOCIAL HISTORY: Tobacco Use: Not on file Alcohol Use: Yes (socially) Drug Use: Not on file Employer And Job Title: No employer specified ([employer]) Years Of Education Completed: Not specified Marital Status: Single MEDICATIONS: Current Outpatient Medications Medication Sig amitriptyline (ELAVIL) 10 mg tablet TREMFYA 100 mg/mL lisinopril (ZESTRIL, PRINIVIL) 20 mg tablet Take 20 mg by mouth once daily. predniSONE (DELTASONE) 20 mg tablet TAKE 2 TABLETS BY MOUTH ONCE DAILY FOR 3 DAYS, THEN 1 TAB FOR 3 DAYS, THEN 1/2 (ONE-HALF) TAB FOR 3 DAYS No current facility-administered medications for this visit. I have personally reviewed the patients past medical history including social, family, surgical, diagnostics, and medications./AB Review of Systems Constitutional: Negative for chills, fever and unexpected weight change. HENT: Negative for congestion, facial swelling, trouble swallowing and voice change. Eyes: Negative for visual disturbance. Respiratory: Negative for shortness of breath. Cardiovascular: Negative for chest pain. Gastrointestinal: Negative for diarrhea, nausea and vomiting. Musculoskeletal: Negative for gait problem and myalgias. Allergic/Immunologic: Negative. Negative for immunocompromised state. Neurological: Positive for headaches. Negative for dizziness, syncope and light-headedness. Psychiatric/Behavioral: Negative. Negative for hallucinations and self-injury. Vitals: BP 138/87 Pulse 90 Ht 182.9 cm (6') Wt 102.1 kg (225 lb) BMI 30.52 kg/m? PHYSICAL EXAM:: The physical exam findings are as follows: General General Appearance - Well groomed Orientation: Oriented to time, oriented to place, and oriented to person. Higher Cortical Function: Awake and alert. Language functions are intact. Patient names well and repeats well, spontaneous speech as well as comprehension is normal and fund of knowledge is intact for the patient level of education. Attention span and concentration are normal and as expected for patient's age. Neurologic CRANIAL NERVES: ll - Makes and sustains eye contact. Visual rapp are full to confrontation testing. lll, lV, Vl - Pupils are 2 -3 mm in size and reactive. External ocular movements are full and there is no nystagmus. V - Facial sensation to light touch and pin prick, normal. Vll - No facial asymmetry Vlll - Normal hearing. lX - Palatal movements, normal. Xl (more content not included)...[facility]03-08-2023 Instructions* Patient Instructions* Lulu Engle MA - 11/03/2022 11:16 AM EST ASSESSMENT/PLAN: Intractable chronic cluster headache - ICD9: 339.02, ICD10: G44.021 Patient has tried and failed on Amitriptyline with no benefit but Prednisone has provided some relief from his headaches. 1.) Patient will start on Verapamil 240 mg once daily. 2.) Patient will start on Maxalt for breakthrough headaches. To be taken as directed below. Directions for use are to take one at onset of migraine, and if not resolved, may take another in two hours. Do not exceed more than two in 24 hours, four in a week or nine in a month. 3.) Patient will also have home oxygen for use as needed for headaches at 10 liters per minute for 10 minute during headache attacks 4.) Follow up [facility] 2 [facility] History of Present illness Narrative* Ketan Beatty MD - 11/03/2022 11:00 AM EST Referring Provider: Toney Cancino, Date: November 03, 2022 Chief Complaint: Headaches HISTORY OF PRESENT ILLNESS: Danish Farley is a 42 year old male who presents for Headaches. 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 Patient denies smoking and only drinks socially. Patient states that about three to four months ago he started to get headaches that caused his lefteye to water and him to become sensitive to light. He didn't think much of it at first but then they began to occur daily. He started on Lisinopril in an effort to help reduce his blood pressure in hopes that it would help the headaches also. He states that the headaches will start with a pressure sensation in his head behind his left eye about half way around his head. He denies redness in his eye or his nose becoming runny when his eye vazquez. If he takes an over the counter medication in time he can get relief fairly quick. Patient believes that moving around is better than sitting or laying down for him during a headache. He states that he feels like the headaches are constant. Patient had recently moved so he did try a new pillow and not wearing his contacts for a week with no benefits. Patient states that his brother also has headaches similar to his are. He did recently start on a regiment of Prednisone and benefited from use. I, Lulu Engle MA, transcribing for Ketan Beatty MD. ALLERGIES No Known Allergies PAST MEDICAL HISTORY: PAST MEDICAL HISTORY Diagnosis Date Cholecystitis 07/28/2010 Cholelithiasis 07/28/2010 Hypertension PAST SURGICAL HISTORY Procedure Laterality Date LAPS SURG CHOLECYSTECTOMY W/CHOLANGIOGRAPHY 07/28/2010 FAMILY HISTORY Problem Relation Age of Onset Skin Cancer Mother other (hypercholesteroiema) Mother Depression Mother Obesity Mother Irritable Bowel Syndrome Mother Ischemic Heart Disease Father Diabetes Father Obesity Father Heart disease Father Cancer Father Stroke Father Obesity Brother Hypertension Brother Diabetes Brother Heart disease Maternal Grandfather Diabetes Paternal Grandmother Heart disease Paternal Grandfather Heart disease Maternal Uncle Diabetes Maternal Uncle Obesity Maternal Uncle SOCIAL HISTORY: Tobacco Use: Not on file Alcohol Use: Yes (socially) Drug Use: Not on file Employer And Job Title: No employer specified ([employer]) Years Of Education Completed: Not specified Marital Status: Single MEDICATIONS: Current Outpatient Medications Medication Sig amitriptyline (ELAVIL) 10 mg tablet TREMFYA 100 mg/mL lisinopril (ZESTRIL, PRINIVIL) 20 mg tablet Take 20 mg by mouth once daily. predniSONE (DELTASONE) 20 mg tablet TAKE 2 TABLETS BY MOUTH ONCE DAILY FOR 3 DAYS, THEN 1 TAB FOR 3DAYS, THEN 1/2 (ONE-HALF) TAB FOR 3 DAYS No current facility-administered medications for this visit. I have personally reviewed the patients past medical history including social, family, surgical, diagnostics, and medications./AB Review of Systems Constitutional: Negative for chills, fever and unexpected weight change. HENT: Negative for congestion, facial swelling, trouble swallowing and voice change. Eyes: Negative for visual disturbance. Respiratory: Negative for shortness of breath. Cardiovascular: Negative for chest pain. Gastrointestinal: Negative for diarrhea, nausea and vomiting. Musculoskeletal: Negative for gait problem and myalgias. Allergic/Immunologic: Negative. Negative for immunocompromised state. Neurological: Positive for headaches. Negative for dizziness, syncope and light-headedness. Psychiatric/Behavioral: Negative. Negative for hallucinations and self-injury. Vitals: BP 138/87 Pulse 90 Ht 182.9 cm (6') Wt 102.1 kg (225 lb) BMI 30.52 kg/m PHYSICAL EXAM:: The physical exam findings are as follows: General General Appearance - Well groomed Orientation: Oriented to time, oriented to place, and oriented to person. Higher Cortical Function: Awake and alert. Language functions are intact. Patient names well and repeats well, spontaneous speech as well as comprehension is normal and fund of knowledge is intact for the patient level of education. Attention span and concentration are normal and as expected for patient's age. Neurologic CRANIAL NERVES: ll - Makes and sustains eye contact. Visual rapp are full to confrontation testing. lll, lV, Vl - Pupils are 2 -3 mm in size and reactive. External ocular movements are full and thereis no nystagmus. V - Facial sensation to light touch and pin prick, normal. Vll - No facial asymmetry Vlll - Normal hearing. lX - Palatal movements, normal. Xl - Good and equal shoulder shrugs. Xll - Tongue protrusion, midline. Motor Exam Bulk/Size: Normal Strength Exam: Upper Extremity Right Left Deltoid 5 5 Biceps 5 5 Triceps 5 5 Wrist Extensor 5 5 Wrist Flexor 5 5 APB 5 5 FDI 5 5 Lower Extremity Right Left Flexor hip joint 5 5 Extensor hip joint 5 5 Extensor knee joint 5 5 Flexor knee joint 5 5 Dorsi flexor ankle joint 5 5 Plantar flexor ankle joint 5 5 Tone: Normal Abnormal movements: None Sensory: Right Left Light Touch Not checked Not checked Pin Prick Not checked Not checked Vibration Not checked Not checked Temperature Not checked Not checked Distal/Proximal exam normal Sensory level: None Reflex Right Left Biceps 2+ 2+ Triceps 2+ 2+ Wrist 2+ 2+ Knee 2+ 2+ Ankle 2+ 2+ Plantar Not checked Not checked Cerebellar Exam: Normal Gait and Stance: Not checked Tandem walk: Not checked Romberg's: Not checked ASSESSMENT/PLAN: Intractable chronic cluster headache - ICD9: 339.02, ICD10: G44.021 Patient has tried and failed on Amitriptyline with no benefit but Prednisone has provided some relief from his headaches. 1.) Patient will start on Verapamil 240 mg once daily. 2.) Patient will start on Maxalt for breakthrough headaches. To be taken as directed below. Directions for use are to take one at onset of migraine, and if not resolved, may take another in two hours. Do not exceed more than two in 24 hours, four in a week or nine in a month. 3.) Patient will also have home oxygen for use as needed for headaches at 10 liters per minute for 10 minute during headache attacks 4.) Follow up in 2 months I have discussed the recommended treatment, alternative treatments and other treatment options in detail. I have discussed the risks, benefits and side effect of the recommended treatment in detail as well. I have attempted to answer all their questions to their satisfaction and understanding of the explanation has been voiced. With approval we will pursue the recommended treatment. I, Ketan Beatty, have reviewed and agree with the information in the medical record transcribed by Lulu Engle MA. 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 [facility] Diagnosis 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 [facility] Reason for Referral Specialty Diagnoses / Procedures Referred By Everton bolton Referred To Contact Ketan Beatty MD [address] [place] [id number] Referral ID Status Reason Start Date Expiration Date Visits Re quested Visits Authorized [id number] Closed 1 1 Specialty Diagnoses / Procedures Referred By Everton bolton Referred To Contact [facility] Diagnoses Trigeminal autonomic cephalgias Procedures MRI BRAIN WO/W IVCON MRI BRAIN BRAIN STEM W/O W/CONTRAST MATERIAL Ketan Beatty MD [address] [place] [address] Mr Imaging Referral ID Status Reason Start Date Expiration Date Visits Requested Visits Authorized [id number] Pending Review Auto-Generat ed Referral 03/29/2023 04/26/2024 1 1 Summary Purpose Family History No Family History Records Found Advance Directives No Advanced Directives Records Found Additional Source Comments Source Comments (unrecognize d section and content) In the event this informatio n is protected by the Federal Confidentiality of Alcohol and Drug Abuse Patient Records regulations: The Federal rules restrict any use of the information to criminally investigate or prosecute any alcohol or drug abuse patient.[facility] the event this information is protected by the Federal Confidentiality of Alcohol and Drug Abuse Patient Records regulations: The Federal rules restrict any use of the information to criminally investigate or prosecute any alcohol or drug abuse patient.[facility] the event this information is protected by the Federal Confidentiality of Alcohol and Drug Abuse Patient Records regulations: The Federal rules restrict any use of the information to criminally investigate or prosecute any alcohol or drug abuse patient.[facility] the event this information is protected by the Federal Confidentiality of Alcohol and Drug Abuse Patient Records regulations: The Federal rules restrict any use of the information to criminally investigate or prosecute any alcohol or drug abuse patient.[facility] the event this information is protected by the Federal Confidentiality of Alcohol and Drug Abuse Patient Records regulations: The Federal rules restrict any use of the information to criminally investigate or prosecute any alcohol or drug abuse patient.[facility] the event this information is protected by the Federal Confidentiality of Alcohol and Drug Abuse Patient Records regulations: The Federal rules restrict any use of the information to criminally investigate or prosecute any alcohol or drug abuse patient.[facility] the event this information is protected by the Federal Confidentiality of Alcohol and Drug Abuse Patient Records regulations: The Federal rules restrict any use of the information to criminally investigate or prosecute any alcohol or drug abuse patient.[facility] the event this information is protected by the Federal Confidentiality of Alcohol and Drug Abuse Patient Records regulations: The Federal rules restrict any use of the information to criminally investigate or prosecute any alcohol or drug abuse patient.[facility] the event this information is protected by the Federal Confidentiality of Alcohol and Drug Abuse Patient Records regulations: The Federal rules restrict any use of the information to criminally investigate or prosecute any alcohol or drug abuse patient.[facility] Reason for Visit (unrecogniz ed section and content) Reason Comments Medication Problem Reason Comments Ajovy prior auth Reason Comments Headaches Patient is in today to follow up for his headaches. Reason Comments Headaches Patient is in for fo llow up on his headaches Reason Comments Patient Question Reason Comments Follow Up 6 week Reason Comments MRI brain prior auth (unrecognized sect ion and content) No Status Records Found INFORMATION SOURCE (unrecogn ized section and content) FOR RECORDS PERTAINING TO PATIENTS WHO ARE OR HAVE BEEN ENROLLED IN A CHEMICAL DEPENDENCY/SUBSTANCEABUSE PROGRAM, SOME INFORMATION MAY BE OMITTED. This clinical summary was aggregated from multiple sources. Caution should be exercised in using it in the provision of clinical care. This summary normalizes information from multiple sources, and as a consequence, information in this document may materially change the coding, format and clinical context of patient data. In addition, data may be omitted in some cases. CLINICAL DECISIONS SHOULD BE BASED ON THE PRIMARY CLINICAL RECORDS. [facility]. provides no warranty or guarantee of the accuracy or completeness of information in this document.
[2023-09-10 21:07] LABS: Hepatitis B Core Ab Total Negative (Negative); QNTFERON TB Mitogen Value > 10.00 IU/mL (.); QNTFERON TB Nil Value 0 IU/mL (.); QNTFERON TB1+ Ag Value 0 IU/mL (.); QNTFERON TB2+ Ag Value 0 IU/mL (.); QNTIFERON TB Positive Criteria Negative (Negative)
== END | disposition home or self-care (01) ==
LOC: MTLAB 16:14
PROVIDERS: PCP Family Medicine; Referring Provider Physician Assistant Medical; Visit Provider Physician Assistant Medical
DX: L40.0 Psoriasis vulgaris (principal); Z79.899 Other long term (current) drug therapy
CPT/HCPCS: 36415; 86480; 86704

== ENCOUNTER → 2024-12-07 | Outpatient (CLI) | payer BC, SELFPAY ==
[2024-12-11 17:08] LABS: QNTFERON TB Mitogen Value > 10.00 IU/mL (.); QNTFERON TB Nil Value 0.03 IU/mL (.); QNTFERON TB1+ Ag Value 0.04 IU/mL (.); QNTFERON TB2+ Ag Value 0.03 IU/mL (.); QNTIFERON TB Positive Criteria Negative (Negative)
== END | disposition home or self-care (01) ==
LOC: MFPLAB 16:46
PROVIDERS: PCP Family Medicine
DX: L40.0 Psoriasis vulgaris (principal); Z79.899 Other long term (current) drug therapy
CPT/HCPCS: 36415; 86480